=== PATIENT | female | born 1945 | race Caucasian/White ===

== ENCOUNTER 2022-06-13 07:09 | Emergency (ER) | payer MEDICARE, SELFPAY ==
--- NOTE | 2022-06-13 07:11 | W.ED.WEAKNES ---
HPI - Weakness General: Chief complaint: Nausea/Vomiting/Diarrhea Stated complaint: Weakness/Fall Time Seen by Provider: 06/13/22 07:11 History of Present Illness: Ms. Humphrey is a 77-year-old lady who presents to the emergency department due to diarrhea and generalized weakness. She reports onset of symptoms approximately 3 days ago though family member clarifies more likely 1 to 2 days of watery diarrhea. Today she felt weak to the point that she fell on her left side. Denies associated pain or significant trauma. Mild associated nausea without vomiting. Does have a history of antibiotic use. Overall intensity symptoms is moderate. Course has worsened. No other specific changes in health, exacerbating, or alleviating factors identified. Onset (ago): day(s) Duration: progressively worsening Location: generalized Severity: moderate Associated symptoms: Reports nausea and other Review of Systems General: Reports: 10 or more systems reviewed and unremarkable except in HPI and below GI: Reports: nausea PFSH ED PFSH: Medical History Hx of fracture of right hip Surgical History History of lumpectomy of both breasts Family History Mother Cancer breast Dementia Father Stroke Sister Cancer breast Denies family history of Diabetes CAD (coronary artery disease) Clotting disorder Psychiatric illness Bleeding disorder Family history of premature coronary artery disease Social History Smoking and tobacco status: current every day smoker (PPD x 50) Second hand smoke exposure: No Alcohol intake: never Adopted: No Caregiver/support person: Yes (sister) Lives independently: No Household members: family Marital status: Single service: No Current occupational status: retired History of recent travel: No Current gender identity: Female Special julissa needs: No Agree to transfusion: Yes Physical Exam Const: COMMON NORMALS: alert GENERAL APPEARANCE: cooperative and well developed NUTRITIONAL APPEARANCE: underweight HENMT: COMMON NORMALS: normocephalic and atraumatic HEAD & SCALP: normocephalic and atraumatic THROAT: posterior oropharynx normal Eye: COMMON NORMALS: conjunctivae normal CONJUNCTIVA: Yes conjunctivae normal SCLERA: sclerae normal Neck/C-Spine: COMMON NORMALS: supple GENERAL: Yes trachea midline Resp: COMMON NORMALS: normal respiratory effort EFFORT & INSPECTION: Yes able to speak in complete sentences AUSCULTATION: diminished lung sounds Cardio: COMMON NORMALS: regular rate and regular rhythm RATE: regular rate RHYTHM: regular rhythm GI: COMMON NORMALS: Soft to palpation PALPATION: Yes Soft to palpation, Yes Tenderness to palpation present (GI) (Mild generalized), No Guarding due to palpation present (GI) and No Rigid due to palpation Extremity: GENERAL: Yes normal exam except as noted and No edema Neuro: COMMON NORMALS: moves all extremities SENSORIUM/ORIENTATION: Yes alert and No Orientation impaired Psych: COMMON NORMALS: mental status grossly normal and Normal thought process present THOUGHT PROCESS: Normal thought process present Course ED course: - Patient was seen and evaluated by me at bedside - Patient placed on cardiac monitors, IV access obtained - Initial evaluation notable for exam as above, no obvious trauma from fall identified on physical exam - Labs and xrays personally interpreted by me EKG notable for sinus rhythm with occasional PVCs, no STEMI - Fluids, antiemetic given - Labs notable for mild leukocytosis, normal hemoglobin. Metabolic panel with mild evidence of dehydration, no transaminitis or elevation in alk phos. Delta troponin negative. No evidence of UTI. - Imaging notable for inflammation of the large bowel to the level of the rectum. Some adjacent free fluid likely reactive. - Upon serial reexamination after treatment the patient was significantly improved - Based on patient history, evaluation, and testing as interpreted the most likely cause of the patient's condition is colitis with dehydration - The results of ED evaluation were discussed with the patient including possible disposition options. I offered admission to the patient for observation and IV antibiotics which the patient declined. She does live with others who can watch her closely. First dose of antibiotics given here. I discussed prescriptions and/or symptomatic cares (if applicable) including appropriate and responsible use, followup plan, and return precautions. The patient verbalized understanding and felt safe for discharge. - Patient discharged in satisfactory condition. Note: Click bubbles or prepopulated flores in note writing are used for assistance with data collection and billing and are inherently more limited than narrative and other text portions of this note. Please use narrative for additional clinical history and defer to narrative/free test for any case of contradictory information. If information appears in only free text or click bubble it should be considered present or absent as reported. Please contact note song writer for clarifications of clinical information or contradictory information. MDM is a brief summary, contradictory or erroneous seeming information should be clarified and full note should be reviewed. Vital Signs: Vital signs: Vital Signs Temperature 993.2 F H 06/13/22 07:21 Pulse Rate 71 06/13/22 12:30 Respiratory Rate 16 06/13/22 12:30 Blood Pressure 97/55 06/13/22 12:30 Pulse Oximetry 98 06/13/22 12:30 Oxygen Delivery Me thod 06/13/22 12:30 MDM - Weakness Medical Decision Making 77-year-old lady presenting with GI symptoms and fall due to weakness. Nonfocal neurologic exam, patient is nontoxic in appearance. Imaging notable for colitis. Offered admission which the patient declined, Cipro and Flagyl administered here and patient will go home with prescription. Strict return precautions. Medical Records I reviewed the patient's medical records. Lab Data I reviewed the patient's lab results. : 06/13/22 07:40 06/13/22 07:40 Radiology Impressions Abdomen/Pelvis CT 06/13/22 07:59 IMPRESSION: 1. Hyperemia with wall thickening involving the distal colon to the level of the rectum. Differential includes inflammatory processes and ischemia. There is also small amount of free fluid in the pelvis. 2. Small amount of free fluid adjacent to the gallbladder with mild gallbladder hydrops. No stones. No bile duct dilatation. 3. Vasa recta engorgement in the pelvis with abnormal adjacent small bowel loops which are fluid-filled and abnormal distal colon. No mass or obstruction. Notified Yuri Thao MD at 06/13/2022 9:28 AM. Laboratory Results WBC 11.9 10^3/uL (4.0-10.0) H 06/13/22 07:40 RBC 4.13 10^6/uL (4.1-5.3) 06/13/22 07:40 Hgb 13.2 g/dL (11.5-15.3) 06/13/22 07:40 Hct 40.2 % (37.0-47.0) 06/13/22 07:40 MCV 97.3 fl (81-99) 06/13/22 07:40 MCH 32.0 pg (28.0-34.0) 06/13/22 07:40 MCHC 32.8 g/dL (30.0-36.0) 06/13/22 07:40 RDW 14.8 % (12.1-15.1) 06/13/22 07:40 Plt Count 199 10^3/cmm (130-400) 06/13/22 07:40 MPV 11.8 fL (7.4-10.4) H 06/13/22 07:40 Neut % (Auto) 91.8 % 06/13/22 07:40 Lymph % (Auto) 3.9 % 06/13/22 07:40 [place] % (Auto) 3.4 % 06/13/22 07:40 Eos % (Auto) 0.0 % 06/13/22 07:40 Baso % (Auto) 0.3 % 06/13/22 07:40 Neut # (Auto) 10.91 10^3/uL (1.8-7.7) H 06/13/22 07:40 Lymph # (Auto) 0.5 10^3/uL (0.8-4.8) L 06/13/22 07:40 [place] # (Auto) 0.4 10^3/uL (0.2-0.9) 06/13/22 07:40 Eos # (Auto) 0.0 10^3/uL (0.0-0.8) 06/13/22 07:40 Baso # (Auto) 0.0 10^3/uL (0.0-0.1) 06/13/22 07:40 Nucleated RBC % (auto) 0 % 06/13/22 07:40 Nucleated RBCs # 0.0 /100WBC 06/13/22 07:40 Sodium 132 mmol/L (136-145) L 06/13/22 07:40 Potassium 4.2 mmol/L (3.5-5.1) 06/13/22 07:40 Chloride 98 mmol/L (98-107) 06/13/22 07:40 Carbon Dioxide 25 mmol/L (22-29) 06/13/22 07:40 Anion Gap 13.2 (5-19) 06/13/22 07:40 BUN 17 mg/dL (8-23) 06/13/22 07:40 Creatinine 0.8 mg/dL (0.5-0.9) 06/13/22 07:40 GFR Calculation Not Reportable 06/13/22 07:40 Glucose 105 mg/dL (65-115) 06/13/22 07:40 Calculated Osmolality 276 mOsm/kg (285-295) L 06/13/22 07:40 Lactate 1.4 mmol/L (0.5-2.2) 06/13/22 07:40 Calcium 8.7 mg/dL (8.5-10.5) 06/13/22 07:40 Total Bilirubin 0.5 mg/dL (0.15-1.2) 06/13/22 07:40 AST 27 U/L (0-32) 06/13/22 07:40 ALT 11 U/L (0-33) 06/13/22 07:40 Alkaline Phosphatase 77 U/L (35-105) 06/13/22 07:40 Troponin T Baseline 19 ng/L (0-10) H 06/13/22 07:40 Troponin T 120 Minute 15.52 ng/L (0-10) H 06/13/22 09:49 Delta Troponin T -3.48 ABS# (0-10) L 06/13/22 09:49 Total Protein 7.2 g/dL (6.6-8.7) 06/13/22 07:40 Albumin 3.9 g/dL (3.5-5.2) 06/13/22 07:40 Globulin 3.3 g/dL (1.3-4.6) 06/13/22 07:40 Lipase 11 U/L (13-60) L 06/13/22 07:40 Urine Color Yellow (Yellow) 06/13/22 09:20 Urine Appearance Clear (CLEAR) 06/13/22 09:20 Urine pH 5 (5-7) 06/13/22 09:20 Ur Specific [place] 1.020 (1.005-1.030) 06/13/22 09:20 Urine Protein 1+ (Negative) H 06/13/22 09:20 Urine Glucose (UA) Norm (Normal) 06/13/22 09:20 Urine Ketones Negative (Negative) 06/13/22 09:20 Urine Blood 3+ (Negative) H 06/13/22 09:20 Urine Nitrate Negative (Negative) 06/13/22 09:20 Urine Bilirubin Neg (Negative) 06/13/22 09:20 Urine Urobilinogen Norm mg/dL (Negative) 06/13/22 09:20 Ur Leukocyte Esterase Negative (Negative) 06/13/22 09:20 Urine RBC 0-4 /hpf (0-2) H 06/13/22 09:20 Urine WBC 0-4 /hpf (0-5) H 06/13/22 09:20 Ur Squamous Epith Cells 0-4 /hpf (0-5) H 06/13/22 09:20 Amorphous Sediment 1+ /hpf 06/13/22 09:20 Urine Bacteria None /hpf (NONE) 06/13/22 09:20 Fine Granular Casts 2 /lpf 06/13/22 09:20 Discharge Plan Discharge Patient Disposition: Home Clinical Impression: Colitis, Dehydration Condition: Stable Prescriptions: New ondansetron 4 mg tablet,disintegrating 4 mg PO Q8H PRN (Reason: nausea and vomiting) Qty: 15 0RF ciprofloxacin HCl 500 mg tablet 500 mg PO BID Qty: 7 0RF No Action albuterol sulfate 90 mcg/actuation HFA aerosol inhaler 2 puff inhalation QID PRN (Reason: shortness of breath or wheezing) Qty: 8.5 0RF Tylenol 325 mg Tablet 325 mg PO Q4H PRN (Reason: Pain) Equate Allergy Relief 1 tab PO DAILY PRN (Reason: Allergy Symptoms) Ed A-Hist DM 4-10-15 mg/5 mL liquid 5 ml PO BEDTIME Discharge Orders: Discharge ED (Routine); Ordered 06/13/22 Ordered By: Yuri Thao Referrals: Blaire Magana MD [Primary Care Provider] - Discharge Diet: Advance as tolerated and Clear Liquid Discharge Activity: Increase activity as tolerated Patient Instructions: Dehydration (ED), Colitis (ED), Opioid Safety Activity Restrictions/Additional Instructions: Thank you for visiting the emergency department. You were seen and evaluated for diarrhea with weakness causing fall. The most likely cause of your symptoms is dehydration associated with colitis. This will be treated with antibiotics. I will also prescribe antinausea medication. Please follow-up with your primary care provider in the next few days. Please return to the emergency department for fevers, worsening abdominal pain, inability to tolerate oral intake, recurrent falls, failure to improve, or anything else that you are concerned about and feel needs emergency department evaluation. Coding Level of Care Code ED Cyber Forensic Specialist for Hector Fwd Exam Comprehensive
[2022-06-13 07:21] VITALS: BP 117/63; PULSE 74; RESP 20; TEMP 534; TEMP 993.2; O2SAT 96; BMI 17.7
[2022-06-13 07:25] VITALS: BP 136/56; PULSE 75; RESP 14; O2SAT 96
--- NOTE | 2022-06-13 07:39 | ECG_ITS ---
[facility] Test Date: 2022-06-13 Pat Name: Chanelle Humphrey Department: Room: Gender: Female Aemt: : 1945 Requested By: Yuri Thao Order Number: [id number] Thais MD: Nadine Lanier M.D. Measurements Intervals [place] Rate: 66 P: 88 OR: 188 QRS: 67 QRSD: 85 T: 70 QT: 388 QTc: 408 Interpretive Statements SINUS RHYTHM WITH OCCASIONAL SUPRAVENTRICULAR PREMATURE COMPLEXES No previous ECG available for comparison Electronically Signed On 06-14-2022 15:34:55 CDT by Nadine Lanier M.D. [email or web address] [email or web address] [email or web address] [id number]
--- NOTE | 2022-06-13 07:40 | PC.PHAR ---
pt and pts family states the pt is only taking the medications entered-pts family states the pt finished the cefdinir 300mg bid about a week ago rx was written on 05/29/22-pt states she is just taking the ed a hist dm at bedtime rx written 05/29/22 for 5ml po q6h prn-
[2022-06-13 07:52] LABS: Basophils % 0.3 %; Hematocrit 40.2 % (37.0-47.0); Hemoglobin 13.2 g/dL (11.5-15.3); Lymphocytes # 0.5 10^3/uL (0.8-4.8); Lymphocytes % 3.9 %; Mean Corpuscular HGB Conc 32.8 g/dL (30.0-36.0); Mean Corpuscular Volume 97.3 fl (81-99); Mean Platelet Volume 11.8 fL (7.4-10.4); Monocytes # 0.4 10^3/uL (0.2-0.9); Monocytes % 3.4 %; Neutrophils # 10.91 10^3/uL (1.8-7.7); Neutrophils % 91.8 %; Nucleated Red Blood Cells % 0 %; Platelet Count 199 10^3/cmm (130-400); Red Blood Count 4.13 10^6/uL (4.1-5.3); Red Cell Distribution Width 14.8 % (12.1-15.1); White Blood Count 11.9 10^3/uL (4.0-10.0)
--- NOTE | 2022-06-13 07:59 | CT_ITS ---
WS: [id number] CT ABDOMEN AND PELVIS WITH CONTRAST HISTORY: diarrhea, abdominal discomfort generalized TECHNIQUE: Imaging performed of the abdomen and pelvis with IV contrast. Single phase imaging of the abdomen. Coronal and sagittal reformats are submitted. All CT scans at [facility] use at [facility] one of these dose optimization techniques: automated exposure control; mA and/or kV adjustment per patient size (includes targeted exams where dose is matched to clinical indication); or iterative re construction. IV CONTRAST: Omnipaque 350; 75 mL IV. Oral contrast: No DLP: 292.95 mGy.cm COMPARISON: None available. Lower thorax: Lung bases are degraded by motion artifact. Hyperexpanded lungs. Moderately enlarged he art with a small amount of pericardial fluid or thickening. Small hiatal hernia. Liver/biliary system: Normal size with no intrahepatic dilatation. Gallbladder: Gallbladder is very mildly hydropic. No adjacent inflammation. No wall thickening or sto richy identified by CT. There is a small amount of ascites adjacent to the gallbladder. Transverse diam eter 4.0 cm. Pancreas: Moderately atrophic pancreas. Pancreatic duct is not dilated. Common bile duct is normal. Spleen: Normal size spleen with several granulomata. Adrenal glands: Normal. Right kidney: Normal size kidney. Cortical cyst measures 13 mm mid anterior kidney. No obstruction. Left kidney: Normal size. Exophytic cortical cyst 3.0 cm upper pole. No obstruction. Aorta: Mild atherosclerosis with no aneurysm. Lymphadenopathy: None. Free fluid: Small amount of free fluid within the abdomen and pelvis. Fluid in the RIGHT upper quadra nt adjacent to the gallbladder. Small amount of fluid in the pelvis. GI tract: Stomach is nondistended. No small bowel obstruction. Moderate fecal retention in the RIGHT colon. Abnormal appearance to the descending, sigmoid and rectum. There is abnormal enhancement of th e wall with irregular mucosal thickening and submucosal edema. Findings are suspicious for ischemia o r inflammatory bowel disease. There is also adjacent vasa recta enhancement which is seen with hypere da and acute inflammatory process. No free air. No definite abscess. Abdominal wall: Unremarkable abdominal wall. No hernia. Pelvis: Small amount of free fluid in the pelvis. Vasa recta engorgement. Bones: Prior RIGHT hip arthroplasty. CT/CT abdomen pelvis w con* [id number] IMPRESSION: 1. Hyperemia with wall thickening involving the distal colon to the level of t he rectum. Differential includes inflammatory processes and ischemia. There is also small amount of free fluid in the pelvis. 2. Small amount of free fluid adjacent to the gallbladder with mild gallbladde r hydrops. No stones. No bile duct dilatation. 3. Vasa recta engorgement in the pelvis with abnormal adjacent small bowel loo ps which are fluid-filled and abnormal distal colon. No mass or obstruction. Notified Yuri Thao MD at 06/13/2022 9:28 AM.
[2022-06-13] MEDS: lactated ringers 1,000 ML 999 ML IV (08:03)
[2022-06-13] MEDS: ondansetron 2 mg/ML SDV 2 mL 4 MG IVP (08:03)
[2022-06-13 08:08] LABS: Lactate (Lactic Acid level) 1.4 mmol/L (0.5-2.2)
[2022-06-13 08:23] LABS: Alanine Aminotransferase 11 U/L (0-33); Albumin Level 3.9 g/dL (3.5-5.2); Alkaline Phosphatase 77 U/L (35-105); Anion Gap 13.2 (5-19); Aspartate Amino Transferase 27 U/L (0-32); Blood Urea Nitrogen 17 mg/dL (8-23); Calcium 8.7 mg/dL (8.5-10.5); Carbon Dioxide 25 mmol/L (22-29); Chloride 98 mmol/L (98-107); Globulin 3.3 g/dL (1.3-4.6); Glucose 105 mg/dL (65-115); Lipase 11 U/L (13-60); Osmolality Calculated 276 mOsm/kg (285-295); Potassium 4.2 mmol/L (3.5-5.1); Sodium 132 mmol/L (136-145); Total Bilirubin 0.5 mg/dL (0.15-1.2); Total Protein 7.2 g/dL (6.6-8.7)
[2022-06-13 08:24] LABS: Troponin(5th) Baseline 19 ng/L (0-10)
[2022-06-13 08:25] VITALS: BP 117/43; PULSE 73; RESP 15; O2SAT 97
[2022-06-13 08:35] VITALS: BP 114/43; BP 117/43; BP 124/45; PULSE 70; PULSE 75; PULSE 77
[2022-06-13] MEDS: iohexol 350 mg/mL 100 mL Btl IV (08:56)
[2022-06-13 09:30] VITALS: BP 119/53; PULSE 73; RESP 15; O2SAT 94
--- NOTE | 2022-06-13 10:02 | ECG_ITS ---
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 Measurements Intervals [place] Rate: 72 P: TN: QRS: 59 QRSD: 80 T: 66 QT: 386 QTc: 423 Interpretive Statements Sinus rhythm with frequent supraventricular ectopics ABNORMAL RHYTHM ECG Compared to ECG 06/13/2022 07:53:51 No significant change Electronically Signed On 06-14-2022 15:45:20 CDT by Nadine Lanier M.D. [email or web address] at stone countyBlue Bus [facility] [email or web address].[id number]
[2022-06-13] MEDS: metroNIDAZOLE IV 500 MG/100 ML PREMIX 100 MG IV (10:07)
[2022-06-13 10:24] LABS: Troponin 5 2HR 15.52 ng/L (0-10)
[2022-06-13 10:25] LABS: Troponin 5 2HR Delta -3.48 ABS# (0-10)
[2022-06-13 10:29] LABS: Add Urine Microscopic? YES; Bilirubin Urine Neg (Negative); Blood Urine 3+ (Negative); Glucose Urine UA Norm (Normal); Ketones Urine Negative (Negative); Leukocyte Esterase Urine Negative (Negative); Nitrate Urine Negative (Negative); Protein Urine 1+ (Negative); Urine Appearance Clear (CLEAR); Urine Color Yellow (Yellow); Urobilinogen Urine Norm (Negative); pH Urine 5 (5-7)
[2022-06-13 10:38] LABS: Amorphous Sediment Urine 1+ /hpf; RBC Urine 0-4 /hpf (0-2); Squamous Epithelial Cell Urine 0-4 /hpf (0-5); WBC Urine 0-4 /hpf (0-5)
[2022-06-13 10:39] LABS: Add Urine Culture? No; Fine Granular Casts Urine 2 /lpf
[2022-06-13] MEDS: ciprofloxacin 400 MG/200 ML PREMIX 200 MG IV (11:09)
[2022-06-13 12:30] VITALS: BP 97/55; PULSE 71; RESP 16; O2SAT 98
--- NOTE | 2022-06-13 12:41 | PC.NURSE ---
Patients discharge orders was put in as oders for Abx. were given. Held patient to infuse Abx.
== END 2022-06-13 12:30 | disposition home or self-care (01) ==
PROVIDERS: Emergency Provider Emergency Medicine; PCP Family Medicine
DX: K52.9 Noninfective gastroenteritis and colitis, unspecified (principal); E86.0 Dehydration; F17.210 Nicotine dependence, cigarettes, uncomplicated
CPT/HCPCS: 74177; 80053; 81001; 83605; 83690; 84484; 85025; 93005; 96365; 96366; 96367; 96375; 99285; J0744; J2405; Q9967; S0030

== ENCOUNTER → 2022-06-27 10:30 | Outpatient (BNVA) | payer MEDICARE, SELFPAY | PROVIDERS: PCP Family Medicine; Visit Provider Family Medicine | DX: E03.8 Other specified hypothyroidism (principal); Z83.49 Family history of other endocrine, nutritional and metabolic diseases; K52.9 Noninfective gastroenteritis and colitis, unspecified | CPT/HCPCS: 84439; 84443 ==

== ENCOUNTER → 2022-07-23 14:45 | Outpatient (BNVA) | payer MEDICARE, SELFPAY | PROVIDERS: PCP Family Medicine; Visit Provider Family Medicine | DX: R53.83 Other fatigue (principal) | CPT/HCPCS: 81000; 85025; 87426 ==